=== PATIENT | male | born 1960 | race African-American/Black ===

== ENCOUNTER → 2016-11-12 | Outpatient (CLI) | payer OTHER ==
[2016-11-12 11:00] LABS: BASO # 0.1 x10^3/uL (0.0-0.2); BASO % 1 % (0-3); EOS % 3 % (0-3); HEMATOCRIT 41.7 % (39.0-53.0); HEMOGLOBIN 14.3 g/dL (13.0-17.5); LYMPH # 1.8 x10^3/uL (1.0-4.8); LYMPH % 33 % (24-48); MEAN CORPUSCULAR HEMOGLOBIN 29 pg (25-35); MEAN CORPUSCULAR HGB CONC 34 g/dL (31-37); MEAN CORPUSCULAR VOLUME 85 fL (79-100); MONO % 5 % (0-9); NEUT % 57 % (31-73); PLATELET COUNT 291 x10^3/uL (140-400); RED BLOOD COUNT 4.89 x10^6/uL (4.30-5.70); RED CELL DISTRIBUTION WIDTH 14.3 % (11.5-14.5)
[2016-11-12 11:03] LABS: WHITE BLOOD COUNT 5.3 x10^3/uL (4.0-11.0)
--- NOTE | 2016-11-12 11:19 | RAD ---
Indication: COPD. Time of exam 11 0 3:00 AM Correlation is made with prior exam from 10/22/2013. FINDINGS: The heart size is normal. The lungs are clear. No pleural effusion or pneumothorax is identified. The pulmonary vascularity is normal. IMPRESSION: No acute abnormality detected.
[2016-11-12 11:22] LABS: ALBUMIN 3.9 g/dL (3.4-5.0); ALBUMIN/GLOBULIN RATIO 0.9 (1.0-1.7); CREATININE 0.9 mg/dL (0.7-1.3); POTASSIUM 3.5 mmol/L (3.5-5.1); TOTAL BILIRUBIN 0.6 mg/dL (0.2-1.0); TOTAL PROTEIN 8.2 g/dL (6.4-8.2)
[2016-11-12 11:28] LABS: CHOLESTEROL/HDL RATIO 3.2
== END | disposition home or self-care (01) ==
LOC: RAD 10:35
PROVIDERS: ATTEND Family Medicine
DX: I10 Essential (primary) hypertension (principal); E78.5 Hyperlipidemia, unspecified; J44.9 Chronic obstructive pulmonary disease, unspecified
CPT/HCPCS: 36415; 71020; 80053; 80061; 83036; 85027

== ENCOUNTER → 2017-05-23 | Outpatient (CLI) | payer OTHER ==
[2017-05-23 10:44] LABS: BASO # 0.1 x10^3/uL (0.0-0.2); BASO % 2 % (0-3); EOS % 4 % (0-3); HEMATOCRIT 42.3 % (39.0-53.0); HEMOGLOBIN 13.9 g/dL (13.0-17.5); LYMPH # 1.6 x10^3/uL (1.0-4.8); LYMPH % 33 % (24-48); MEAN CORPUSCULAR HEMOGLOBIN 29 pg (25-35); MEAN CORPUSCULAR HGB CONC 33 g/dL (31-37); MEAN CORPUSCULAR VOLUME 87 fL (79-100); MONO % 7 % (0-9); NEUT % 54 % (31-73); PLATELET COUNT 284 x10^3/uL (140-400); RED BLOOD COUNT 4.88 x10^6/uL (4.30-5.70); RED CELL DISTRIBUTION WIDTH 14.6 % (11.5-14.5); WHITE BLOOD COUNT 4.9 x10^3/uL (4.0-11.0)
[2017-05-23 11:00] LABS: ALBUMIN 4.1 g/dL (3.4-5.0); CALCIUM 9.2 mg/dL (8.5-10.1); CREATININE 0.9 mg/dL (0.7-1.3); GFR 105.6; POTASSIUM 3.6 mmol/L (3.5-5.1); TOTAL BILIRUBIN 0.4 mg/dL (0.2-1.0); TOTAL PROTEIN 8.1 g/dL (6.4-8.2)
[2017-05-23 11:02] LABS: CHOLESTEROL/HDL RATIO 3.2
== END | disposition home or self-care (01) ==
LOC: LAB 10:12
PROVIDERS: ATTEND Family Medicine
DX: Z12.5 Encounter for screening for malignant neoplasm of prostate (principal); Z00.00 Encounter for general adult medical examination without abnormal findings
CPT/HCPCS: 36415; 80053; 80061; 83036; 84443; 85025; G0103

== ENCOUNTER → 2018-05-26 | Outpatient (CLI) | payer OTHER ==
[2018-05-26 07:40] LABS: BASO % 0 % (0-3); EOS # 0.2 x10^3/uL (0.0-0.7); EOS % 5 % (0-3); HEMATOCRIT 41.2 % (39.0-53.0); LYMPH # 1.4 x10^3/uL (1.0-4.8); LYMPH % 35 % (24-48); MEAN CORPUSCULAR HEMOGLOBIN 29 pg (25-35); MEAN CORPUSCULAR HGB CONC 34 g/dL (31-37); MEAN CORPUSCULAR VOLUME 86 fL (79-100); MONO # 0.3 x10^3/uL (0.0-1.1); MONO % 7 % (0-9); NEUT # 2.2 x10^3uL (1.8-7.7); NEUT % 52 % (31-73); PLATELET COUNT 287 x10^3/uL (140-400); RED BLOOD COUNT 4.79 x10^6/uL (4.30-5.70); RED CELL DISTRIBUTION WIDTH 14.6 % (11.5-14.5); WHITE BLOOD COUNT 4.1 x10^3/uL (4.0-11.0)
[2018-05-26 07:55] LABS: ALBUMIN 3.9 g/dL (3.4-5.0); ALBUMIN/GLOBULIN RATIO 0.9 (1.0-1.7); CALCIUM 8.9 mg/dL (8.5-10.1); GFR 93.2; POTASSIUM 3.3 mmol/L (3.5-5.1); TOTAL BILIRUBIN 0.5 mg/dL (0.2-1.0); TOTAL PROTEIN 8.2 g/dL (6.4-8.2)
[2018-05-26 07:58] LABS: CHOLESTEROL/HDL RATIO 2.9
[2018-05-26 20:13] LABS: HEMOGLOBIN A1C 6.1 % (4.8-5.6)
== END | disposition home or self-care (01) ==
LOC: LAB 07:13
PROVIDERS: ATTEND Family Medicine
DX: Z12.5 Encounter for screening for malignant neoplasm of prostate (principal)
CPT/HCPCS: 36415; 80053; 80061; 83036; 84443; 85025; G0103

== ENCOUNTER 2018-09-03 12:31 | Emergency (ER) | payer OTHER ==
[~2018-09-03] VITALS: Ht 163.8 cm; Wt 86.2 kg
[2018-09-03 13:32] LABS: BASO # 0.1 x10^3/uL (0.0-0.2); BASO % 1 % (0-3); EOS # 0.1 x10^3/uL (0.0-0.7); EOS % 1 % (0-3); HEMATOCRIT 40.2 % (39.0-53.0); HEMOGLOBIN 13.1 g/dL (13.0-17.5); LYMPH # 1.1 x10^3/uL (1.0-4.8); LYMPH % 13 % (24-48); MEAN CORPUSCULAR HEMOGLOBIN 28 pg (25-35); MEAN CORPUSCULAR HGB CONC 33 g/dL (31-37); MEAN CORPUSCULAR VOLUME 86 fL (79-100); MONO # 0.4 x10^3/uL (0.0-1.1); MONO % 4 % (0-9); NEUT # 6.4 x10^3uL (1.8-7.7); NEUT % 81 % (31-73); PLATELET COUNT 270 x10^3/uL (140-400); RED BLOOD COUNT 4.66 x10^6/uL (4.30-5.70); RED CELL DISTRIBUTION WIDTH 14.6 % (11.5-14.5)
[2018-09-03 13:40] LABS: CALCIUM 9.1 mg/dL (8.5-10.1); CREATININE 0.9 mg/dL (0.7-1.3); GFR 105.2; POTASSIUM 3.7 mmol/L (3.5-5.1)
[2018-09-03 13:46] LABS: ALBUMIN 3.9 g/dL (3.4-5.0); DIRECT BILIRUBIN 0.1 mg/dL (0.0-0.2); TOTAL BILIRUBIN 0.6 mg/dL (0.2-1.0); TOTAL PROTEIN 7.8 g/dL (6.4-8.2)
[2018-09-03 14:11] LABS: BILIRUBIN,URINE NEGATIVE (NEG); CLARITY,URINE CLEAR; COLOR,URINE YELLOW; NITRITE,URINE NEGATIVE (NEG); PH,URINE 6.5; PROTEIN,URINE NEGATIVE (NEG-TRACE); UROBILINOGEN,URINE 0.2 mg/dL (0.2 mg/dL)
[2018-09-03 14:22] LABS: BACTERIA,URINE 0 /HPF (0-FEW); RBC,URINE 0 /HPF (0-2); SQUAMOUS EPITHELIAL CELL,UR OCC /LPF; WBC,URINE OCC /HPF (0-4)
[2018-09-03] MEDS ORDERED: IOHEXOL 300 MG/ML 100ML VIAL. IV ONE (14:45)
[2018-09-03] MEDS ORDERED: CONTRAST GIVEN. MC PRN (14:45)
--- NOTE | 2018-09-03 15:17 | RAD ---
PQRS Compliance Statement: One or more of the following individualized dose reduction techniques were utilized for this examination: 1. Automated exposure control 2. Adjustment of the mA and/or kV according to patient size 3. Use of iterative reconstruction technique CT ABD PELV W/ IV CONTRST ONLY Clinical Indication: LOWER ABD PAIN BILAT HIP REPLACEMENT. History of appendectomy. Comparison: CT abdomen and pelvis with contrast, June 06, 2009. Technique: Helical CT imaging of the abdomen and pelvis is performed after 75 cc of Omnipaque 300 IV contrast. Oral contrast not given. Findings: Mild bilateral lower lobe atelectasis or scarring. Cardiac size normal. Liver, gallbladder, spleen, pancreas, and adrenal glands are normal. Minimal atherosclerotic calcification of the abdominal aorta, no aneurysm. Kidneys enhance symmetrically, no hydronephrosis. Stomach unremarkable. Small fat-containing umbilical hernia. No dilated small bowel. Appendectomy. Moderate distal colon diverticulosis. There is moderate inflammation adjacent to diverticula of the mid sigmoid colon. No microperforation is seen. No peridiverticular abscess is seen. There is mild pelvic free fluid. Evaluation of the pelvis is limited due to beam hardening artifact from bilateral hip arthroplasties. No obvious urinary bladder wall thickening. Bones unremarkable. IMPRESSION: 1. Moderate diverticulitis of the mid sigmoid colon. No perforation or peridiverticular abscess. 2. Mild pelvic free fluid. Electronically signed by: Luis Malone MD (09/03/2018 3:14 PM) [id number]
[2018-09-03 15:24] VITALS: BP 144/80
[2018-09-03] MEDS ORDERED: CIPR500T94 PO (15:27)
[2018-09-03] MEDS ORDERED: METR500T PO (15:27)
--- NOTE | 2018-09-03 15:27 | PHYS DOC ---
Past Medical History Past Medical History: Hypertension Past Surgical History: Appendectomy, Other Additional Past Surgical Histo: bilteral hip Alcohol Use: None Drug Use: None Adult General Chief Complaint Chief Complaint: ABDOMINAL PAIN HPI HPI 58-year-old male presenting the emergency department today with lower abdominal pain bilaterally with cramping. This is been going on for a few days. He reports having normal bowel movement earlier this morning and denies vomiting. His pain is a sharp throbbing pain that comes and goes and is without alleviating factors. He denies any fevers or chills. Review of systems is negative for chest pain shortness of breath nausea or vomiting. All other review of systems is negative unless otherwise noted in history of present illness. ED course: 58-year-old male presenting the emergency department today with abdominal pain found to have uncomplicated diverticulitis. Vital signs within normal limits. Abdominal exam is soft and nontender. No rebound tenderness or guarding. We'll initiate Cipro and Flagyl to follow up with PCP in one to 2 days.The patient has been examined and was not found to have an emergency medical condition. The patient was then discharged home in stable condition to follow up with their primary care physician over the next 1-2 days. They were to return if their symptoms worsened or if they were concerned for any reason. They were also instructed to return to the emergency department if they were unable to get the recommended and appropriate follow-up. [id number] discharge instructions and return precautions were given. Patient's questions were answered to their satisfaction. Patient is comfortable with plan. Review of Systems Review of Systems SEE ABOVE. Current Medications Current Medications Current Medications Medications (Trade) Dose Ordered Sig/Yoshi Start Time Stop Time Status Last Admin Dose Admin Info (CONTRAST GIVEN -- Rx MONITORING) 1 each PRN DAILY PRN 09/03/18 14:45 09/05/18 14:44 Iohexol (Omnipaque 300 Mg/ml) 75 ml 1X ONCE 09/03/18 14:45 09/03/18 14:46 DC 09/03/18 15:00 75 ML Allergies Allergies Allergies Coded Allergies Type Severity Reaction Last Updated Verified No Known Drug Allergies 09/03/18 No Physical Exam Physical Exam SEE ABOVE Constitutional: Well developed, well nourished, no acute distress, non-toxic appearance. [] HENT: Normocephalic, atraumatic, bilateral external ears normal, oropharynx moist, no oral exudates, nose normal. [] Eyes: PERRLA, EOMI, conjunctiva normal, no discharge. [] Neck: Normal range of motion, no tenderness, supple, no stridor. [] Cardiovascular:Heart rate regular rhythm, no murmur [] Lungs & Thorax: Bilateral breath sounds clear to auscultation [] Abdomen: Bowel sounds normal, soft, no tenderness, no masses, no pulsatile masses. [] Skin: Warm, dry, no erythema, no rash. [] Back: No tenderness, no CVA tenderness. [] Extremities: No tenderness, no cyanosis, no clubbing, ROM intact, no edema. [] Neurologic: Alert and oriented X 3, normal motor function, normal sensory function, no focal deficits noted. [] Psychologic: Affect normal, judgement normal, mood normal. [] Current Patient Data Vital Signs Vital Signs Date Time Temp Pulse Resp B/P (MAP) Pulse Ox O2 Delivery O2 Flow Rate FiO2 09/03/18 13:05 98.4 81 20 141/82 (101) 94 Room Air 98.4 Lab Values Laboratory Tests Test 09/03/18 13:19 09/03/18 14:00 White Blood Count 8.0 x10^3/uL (4.0-11.0) Red Blood Count 4.66 x10^6/uL (4.30-5.70) Hemoglobin 13.1 g/dL (13.0-17.5) Hematocrit 40.2 % (39.0-53.0) Mean Corpuscular Volume 86 fL (79-100) Mean Corpuscular Hemoglobin 28 pg (25-35) Mean Corpuscular Hemoglobin Concent 33 g/dL (31-37) Red Cell Distribution Width 14.6 % (11.5-14.5) H Platelet Count 270 x10^3/uL (140-400) Neutrophils (%) (Auto) 81 % (31-73) H Lymphocytes (%) (Auto) 13 % (24-48) L Monocytes (%) (Auto) 4 % (0-9) Eosinophils (%) (Auto) 1 % (0-3) Basophils (%) (Auto) 1 % (0-3) Neutrophils # (Auto) 6.4 x10^3uL (1.8-7.7) Lymphocytes # (Auto) 1.1 x10^3/uL (1.0-4.8) Monocytes # (Auto) 0.4 x10^3/uL (0.0-1.1) Eosinophils # (Auto) 0.1 x10^3/uL (0.0-0.7) Basophils # (Auto) 0.1 x10^3/uL (0.0-0.2) Sodium Level 140 mmol/L (136-145) Potassium Level 3.7 mmol/L (3.5-5.1) Chloride Level 100 mmol/L (98-107) Carbon Dioxide Level 29 mmol/L (21-32) Anion Gap 11 (6-14) Blood Urea Nitrogen 14 mg/dL (8-26) Creatinine 0.9 mg/dL (0.7-1.3) Estimated GFR (Cockcroft-Gault) 105.2 Glucose Level 94 mg/dL (70-99) Lactic Acid Level 0.9 mmol/L (0.4-2.0) Calcium Level 9.1 mg/dL (8.5-10.1) Total Bilirubin 0.6 mg/dL (0.2-1.0) Direct Bilirubin 0.1 mg/dL (0.0-0.2) Aspartate Amino Transferase (AST) 23 U/L (15-37) Alanine Aminotransferase (ALT) 23 U/L (16-63) Alkaline Phosphatase 62 U/L (46-116) LP-Eej-J-Type Natriuretic Peptide 20 pg/mL (0-124) Total Protein 7.8 g/dL (6.4-8.2) Albumin 3.9 g/dL (3.4-5.0) Lipase 80 U/L (73-393) Urine Color Yellow Urine Clarity Clear Urine pH 6.5 Urine Specific [place] 1.020 Urine Protein Negative mg/dL (NEG-TRACE) Urine Glucose (UA) Negative mg/dL (NEG) Urine Ketones (Stick) Negative mg/dL (NEG) Urine Blood Negative (NEG) Urine Nitrite Negative (NEG) Urine Bilirubin Negative (NEG) Urine Urobilinogen Dipstick 0.2 mg/dL (0.2 mg/dL) Urine Leukocyte Esterase Negative (NEG) Urine RBC 0 /HPF (0-2) Urine WBC Occ /HPF (0-4) Urine Squamous Epithelial Cells Occ /LPF Urine Bacteria 0 /HPF (0-FEW) Urine Mucus Slight /LPF Laboratory Tests 09/03/18 13:19 Laboratory Tests 09/03/18 13:19 EKG EKG [] Radiology/Procedures Radiology/Procedures [] Course & Med Decision Making Course & Med Decision Making Pertinent Labs and Imaging studies reviewed. (See chart for details) [] Dragon Disclaimer Dragon Disclaimer This electronic medical record was generated, in whole or in part, using a voice recognition dictation system. Departure Departure Impression: Primary Impression: Diverticulitis Disposition: HOME, SELF-CARE Condition: STABLE Referrals: NELDA FABIAN DO (PCP) Patient Instructions: Diverticulitis, Diverticulosis Additional Instructions: Thank you for allowing us to participate in your care today. Return to the emergency department you have any new or worsening symptoms, or if you are concerned for any reason. Return to emergency department if you have any new or concerning symptoms including but not limited to fever, chills, nausea, vomiting, intractable pain, any new rashes, chest pain, shortness of air , uncontrolled bleeding, difficulty breathing, and/or vision loss. Follow up with your primary care physician within 1-2 days. Call your Primary Doctor tomorrow and inform them of your visit today. If you do not have a primary care provider we are happy to provide you with a list of our primary care providers contact information. This condition should be evaluated by your primary care physician and any recommended consulting services for continued management within 2 days after discharge. If at any time, you are having difficulty getting into your primary care doctor or a specialist, return to the emergency department. Scripts Metronidazole (FLAGYL) 500 Mg Tablet 1 TAB PO BID, #20 TAB Prov: HUBERT HILLMAN MD 09/03/18 Ciprofloxacin Hcl (CIPRO) 500 Mg Tablet 1 TAB PO BID, #20 TAB Prov: HUBERT HILLMAN MD 09/03/18 HUBERT HILLMAN MD Sep 03, 2018 15:27
== END 2018-09-03 15:35 | disposition home or self-care (01) ==
LOC: ER 12:31
DX: K57.32 Diverticulitis of large intestine without perforation or abscess without bleeding (principal); I10 Essential (primary) hypertension; Z90.89 Acquired absence of other organs
CPT/HCPCS: 36415; 74177; 80048; 80076; 81001; 83605; 83690; 83880; 85025; 99284; Q9967

== ENCOUNTER → 2018-12-25 | Outpatient (CLI) | payer OTHER ==
[~2018-12-25] MED LIST: CIPR500T94 PO; METR500T PO
[2018-12-25 08:11] LABS: BASO # 0.1 x10^3/uL (0.0-0.2); BASO % 2 % (0-3); EOS # 0.2 x10^3/uL (0.0-0.7); EOS % 6 % (0-3); HEMATOCRIT 39.7 % (39.0-53.0); HEMOGLOBIN 13.5 g/dL (13.0-17.5); LYMPH # 1.1 x10^3/uL (1.0-4.8); LYMPH % 34 % (24-48); MEAN CORPUSCULAR HEMOGLOBIN 30 pg (25-35); MEAN CORPUSCULAR HGB CONC 34 g/dL (31-37); MEAN CORPUSCULAR VOLUME 87 fL (79-100); MONO # 0.2 x10^3/uL (0.0-1.1); MONO % 7 % (0-9); NEUT # 1.7 x10^3uL (1.8-7.7); NEUT % 51 % (31-73); PLATELET COUNT 270 x10^3/uL (140-400); RED BLOOD COUNT 4.57 x10^6/uL (4.30-5.70); RED CELL DISTRIBUTION WIDTH 14.9 % (11.5-14.5); WHITE BLOOD COUNT 3.3 x10^3/uL (4.0-11.0)
[2018-12-25 08:30] LABS: ALBUMIN 3.8 g/dL (3.4-5.0); ALBUMIN/GLOBULIN RATIO 0.9 (1.0-1.7); CALCIUM 8.7 mg/dL (8.5-10.1); CREATININE 0.9 mg/dL (0.7-1.3); GFR 105.2; POTASSIUM 3.4 mmol/L (3.5-5.1); TOTAL BILIRUBIN 0.4 mg/dL (0.2-1.0); TOTAL PROTEIN 7.9 g/dL (6.4-8.2)
[2018-12-26 09:13] LABS: HEMOGLOBIN A1C 6.1 % (4.8-5.6)
== END | disposition home or self-care (01) ==
LOC: LAB 06:39
PROVIDERS: ATTEND Family Medicine
DX: Z00.00 Encounter for general adult medical examination without abnormal findings (principal)
CPT/HCPCS: 36415; 80053; 80061; 83036; 84443; 85025

== ENCOUNTER → 2019-05-24 | Outpatient (CLI) | payer OTHER ==
[2019-05-24 09:36] LABS: BASO % 0 % (0-3); EOS # 0.4 x10^3/uL (0.0-0.7); EOS % 8 % (0-3); HEMATOCRIT 41.2 % (39.0-53.0); HEMOGLOBIN 13.7 g/dL (13.0-17.5); LYMPH # 1.5 x10^3/uL (1.0-4.8); LYMPH % 32 % (24-48); MEAN CORPUSCULAR HEMOGLOBIN 29 pg (25-35); MEAN CORPUSCULAR HGB CONC 33 g/dL (31-37); MEAN CORPUSCULAR VOLUME 87 fL (79-100); MONO # 0.3 x10^3/uL (0.0-1.1); MONO % 7 % (0-9); NEUT # 2.5 x10^3/uL (1.8-7.7); NEUT % 53 % (31-73); PLATELET COUNT 266 x10^3/uL (140-400); RED BLOOD COUNT 4.73 x10^6/uL (4.30-5.70); RED CELL DISTRIBUTION WIDTH 14.7 % (11.5-14.5); WHITE BLOOD COUNT 4.6 x10^3/uL (4.0-11.0)
[2019-05-24 09:56] LABS: ALBUMIN 3.8 g/dL (3.4-5.0); ALBUMIN/GLOBULIN RATIO 0.9 (1.0-1.7); CALCIUM 8.7 mg/dL (8.5-10.1); CREATININE 0.9 mg/dL (0.7-1.3); GFR 104.9; POTASSIUM 3.7 mmol/L (3.5-5.1); TOTAL BILIRUBIN 0.6 mg/dL (0.2-1.0); TOTAL PROTEIN 8.2 g/dL (6.4-8.2)
== END | disposition home or self-care (01) ==
LOC: LAB 09:11
PROVIDERS: ATTEND Family Medicine
DX: Z12.5 Encounter for screening for malignant neoplasm of prostate (principal); I10 Essential (primary) hypertension
CPT/HCPCS: 36415; 80053; 80061; 83036; 84153; 85025; G0103

== ENCOUNTER → 2019-12-10 | Outpatient (CLI) | payer OTHER ==
[2019-12-10 08:06] LABS: BASO % 0 % (0-3); EOS # 0.3 x10^3/uL (0.0-0.7); EOS % 7 % (0-3); HEMATOCRIT 40.4 % (39.0-53.0); HEMOGLOBIN 13.7 g/dL (13.0-17.5); LYMPH # 1.4 x10^3/uL (1.0-4.8); LYMPH % 35 % (24-48); MEAN CORPUSCULAR HEMOGLOBIN 30 pg (25-35); MEAN CORPUSCULAR HGB CONC 34 g/dL (31-37); MEAN CORPUSCULAR VOLUME 87 fL (79-100); MONO # 0.3 x10^3/uL (0.0-1.1); MONO % 8 % (0-9); NEUT % 50 % (31-73); PLATELET COUNT 281 x10^3/uL (140-400); RED BLOOD COUNT 4.63 x10^6/uL (4.30-5.70); RED CELL DISTRIBUTION WIDTH 14.7 % (11.5-14.5); WHITE BLOOD COUNT 3.9 x10^3/uL (4.0-11.0)
[2019-12-10 08:29] LABS: ALBUMIN 3.9 g/dL (3.4-5.0); CALCIUM 8.5 mg/dL (8.5-10.1); CREATININE 0.9 mg/dL (0.7-1.3); GFR 104.9; POTASSIUM 3.4 mmol/L (3.5-5.1); TOTAL BILIRUBIN 0.4 mg/dL (0.2-1.0); TOTAL PROTEIN 7.8 g/dL (6.4-8.2)
[2019-12-10 08:30] LABS: CHOLESTEROL/HDL RATIO 3.1
[2019-12-11 03:08] LABS: HEMOGLOBIN A1C 5.9 % (4.8-5.6)
== END ==
LOC: LAB 06:46
PROVIDERS: ATTEND Family Medicine
DX: Z12.5 Encounter for screening for malignant neoplasm of prostate (principal); Z00.00 Encounter for general adult medical examination without abnormal findings
CPT/HCPCS: 36415; 80053; 80061; 83036; 84443; 85025; G0103

== ENCOUNTER → 2020-10-26 | Outpatient (CLI) | payer OTHER ==
[~2020-10-26] MED LIST changes: +AMLO-187 PO; +CETI10TA74 PO; +FLUT15.812 NS; +HYDR12.575 PO
== END ==
LOC: LAB 07:37
PROVIDERS: ATTEND Internal Medicine Gastroenterology
DX: Z01.812 Encounter for preprocedural laboratory examination (principal); Z20.822 Contact with and (suspected) exposure to COVID-19; K57.92 Diverticulitis of intestine, part unspecified, without perforation or abscess without bleeding
CPT/HCPCS: U0003; U0005

== ENCOUNTER → 2020-10-27 | Day surgery (SDC) | payer OTHER ==
[~2020-10-27] MED LIST changes: +IV RINGERS,LACTATED 1000ML 1,000 ML IV SCH; +LIDOCAINE 2% PF 5 ML VIAL. ONE; +PROPOFOL 10 MG/ML (20ML) VIAL. IV ONE
[2020-10-27 08:05] VITALS: BP 112/64
--- NOTE | 2020-10-31 12:07 | PATHOLOGY ---
[facility] Accession Number: [id number] . 01 Material submitted: . sigmoid colon - SIGMOID POLYP . 01 Clinical history: . SCREENING / COLONOSCOPY . 02 Diagnosis: Large bowel "sigmoid polyp", biopsy: - Tubular adenoma; negative for high-grade dysplasia and malignancy. (BJORN:raman; 10/30/2020) MBR 10/30/2020 1820 Local . 02 Electronically signed: . Yesica Menezes MD, Pathologist NPI- [id number] . 01 Gross description: . Received in formalin labeled "Stone, Christopher, sigmoid polyp" is a fragment of ashton-brown soft tissue measuring 1.4 x 0.7 x 0.7 cm. The surgical resection margin is inked black and the specimen is bisected The specimen is submitted entirely in A1. ([facility]; 10/28/2020) GZA/GZA 10/28/2020 1038 Local . 02 Pathologist provided ICD-10: D12.5 . 02 CPT . 941081 Specimen Comment: A courtesy copy of this report has been sent to [phone] Specimen Comment: Report sent to / DR FABIAN Performed at: 01 [facility] [address], [place] [id number] MD Valeriano Peace MD Phone: [phone] Performed at: 02 [facility] [address] [id number] MD Adria Arciniega MD Phone: [phone]
== END | disposition home or self-care (01) ==
LOC: ENDOS 05:54
PROVIDERS: ATTEND Internal Medicine Gastroenterology
DX: Z12.11 Encounter for screening for malignant neoplasm of colon (principal); K64.0 First degree hemorrhoids; K57.30 Diverticulosis of large intestine without perforation or abscess without bleeding; D12.5 Benign neoplasm of sigmoid colon; K63.89 Other specified diseases of intestine; I10 Essential (primary) hypertension; Z79.899 Other long term (current) drug therapy; Z98.890 Other specified postprocedural states; Z88.8 Allergy status to other drugs, medicaments and biological substances
CPT/HCPCS: 45385; 88305; J2704; 45382

== ENCOUNTER → 2021-03-21 | Outpatient (CLI) | payer OTHER ==
[2020-10-27 08:05] VITALS: BP 112/64
[~2021-03-21] MED LIST changes: -IV RINGERS,LACTATED 1000ML 1,000 ML IV SCH; -LIDOCAINE 2% PF 5 ML VIAL. ONE; -PROPOFOL 10 MG/ML (20ML) VIAL. IV ONE
[2021-03-21 07:47] LABS: ALBUMIN 3.8 g/dL (3.4-5.0); ALBUMIN/GLOBULIN RATIO 0.9 (1.0-1.7); CALCIUM 9.1 mg/dL (8.5-10.1); GFR 92.2; POTASSIUM 3.6 mmol/L (3.5-5.1); TOTAL BILIRUBIN 0.3 mg/dL (0.2-1.0)
[2021-03-21 07:48] LABS: BASO # 0.1 x10^3/uL (0.0-0.2); BASO % 3 % (0-3); EOS # 0.3 x10^3/uL (0.0-0.7); EOS % 6 % (0-3); HEMATOCRIT 41.5 % (39.0-53.0); HEMOGLOBIN 13.9 g/dL (13.0-17.5); LYMPH # 1.2 x10^3/uL (1.0-4.8); LYMPH % 29 % (24-48); MEAN CORPUSCULAR HEMOGLOBIN 29 pg (25-35); MEAN CORPUSCULAR HGB CONC 34 g/dL (31-37); MEAN CORPUSCULAR VOLUME 88 fL (79-100); MONO # 0.3 x10^3/uL (0.0-1.1); MONO % 7 % (0-9); NEUT # 2.4 x10^3/uL (1.8-7.7); NEUT % 55 % (31-73); PLATELET COUNT 284 x10^3/uL (140-400); RED BLOOD COUNT 4.74 x10^6/uL (4.30-5.70); RED CELL DISTRIBUTION WIDTH 14.8 % (11.5-14.5); WHITE BLOOD COUNT 4.3 x10^3/uL (4.0-11.0)
[2021-03-22 05:47] LABS: HEMOGLOBIN A1C 6.2 % (4.8-5.6)
== END ==
LOC: LAB 06:42
PROVIDERS: ATTEND Nurse Practitioner Family
DX: Z00.00 Encounter for general adult medical examination without abnormal findings (principal); N52.9 Male erectile dysfunction, unspecified
CPT/HCPCS: 80053; 80061; 83036; 84402; 84403; 84443; 85025; G0103

== ENCOUNTER → 2021-08-17 | Outpatient (CLI) | payer OTHER ==
[2020-10-27 08:05] VITALS: BP 112/64
--- NOTE | 2021-08-17 11:42 | RAD ---
EXAM: Lumbar spine, 3 views. HISTORY: Pain. COMPARISON: None. FINDINGS: 3 views of the lumbar spine are obtained. There is multilevel degenerative change. There ar e mild multilevel endplate depressions. There is advanced facet arthropathy at the mid lower lumbar l evels. There are bilateral hip arthroplasties. IMPRESSION: Multilevel degenerative change. No acute osseous finding. Electronically signed by: Bria Turner MD (08/17/2021 11:39 AM) [id number]
== END ==
LOC: RAD 10:11
PROVIDERS: ATTEND Nurse Practitioner Family
DX: M47.816 Spondylosis without myelopathy or radiculopathy, lumbar region (principal)
CPT/HCPCS: 72100